=== PATIENT | male | born 1980 | race Two or more races ===

== ENCOUNTER 2018-11-17 22:07 | Emergency (ER) | payer OTHER ==
[~2018-11-17] VITALS: Ht 167.6 cm; Wt 65.8 kg
[2018-11-17 22:10] VITALS: BP 134/88
--- NOTE | 2018-11-17 22:15 | Emergency Room Report ---
History of Present Illness General Chief Complaint: Chest Pain Source: Patient Present Illness HPI Is a 38-year-old male with a history of alcohol abuse. He said he drinks every day. He presents with chief complaint of body pain. Pain is in his head, his chest, and his stomach. His been ongoing for 7 years. No nausea no vomiting but no fever chills. Pain is diffuse in nature. Denies any withdrawal symptom. Denies any diarrhea. Nothing made it better. Nothing made it worse. Allergies: Coded Allergies: No Known Allergies (Unverified , 11/17/18) Patient History Past Medical History: see triage record, old chart reviewed Past Surgical History: none Pertinent Family History: none Social History: Reports: alcohol use Immunizations: other Reviewed Nursing Documentation: PMH: Agreed; PSxH: Agreed Review of Systems Eye: Denies: eye pain, blurred vision ENT: Denies: ear pain, nose congestion, throat swelling Respiratory: Denies: cough, shortness of breath Cardiovascular: Reports: chest pain; Denies: palpitations Gastrointestinal: Reports: abdominal pain; Denies: diarrhea, nausea, vomiting Musculoskeletal: Denies: back pain, joint pain Skin: Denies: rash Neurological: Reports: headache; Denies: numbness Endocrine: Denies: increased thirst, increased urine Hematologic/Lymphatic: Denies: easy bruising All Other Systems: negative except mentioned in HPI Physical Exam Vital Signs Date Time Temp Pulse Resp B/P (MAP) Pulse Ox O2 Delivery O2 Flow Rate FiO2 11/17/18 22:09 98.2 18 134/88 97 Room Air vitals normal Sp02 EP Interpretation: reviewed, normal General Appearance: well appearing, no apparent distress, alert Head: normocephalic, atraumatic Eyes: bilateral eye PERRL, bilateral eye EOMI ENT: hearing grossly normal, normal pharynx Neck: full range of motion, supple, no meningismus Respiratory: chest non-tender, lungs clear, normal breath sounds Cardiovascular #1: regular rate, rhythm, no murmur Gastrointestinal: normal bowel sounds, non tender, no mass, no organomegaly, no bruit, non-distended Musculoskeletal: back normal, gait/station normal, normal range of motion Psychiatric: mood/affect normal Skin: warm/dry Medical Decision Making Diagnostic Impression: Primary Impression: Alcohol intoxication Qualified Codes: F10.920 - Alcohol use, unspecified with intoxication, uncomplicated Additional Impressions: Chronic pain Qualified Codes: G89.4 - Chronic pain syndrome Alcoholic hepatitis Qualified Codes: K70.10 - Alcoholic hepatitis without ascites ER Course Patient with alcohol intoxication and chronic pain. No evidence of any bleeding or acute disease. He is not suicidal homicidal. I will let him sleep here until is more clinically sober. We'll discharge home in the morning. Last Vital Signs Date Time Temp Pulse Resp B/P (MAP) Pulse Ox O2 Delivery O2 Flow Rate FiO2 11/17/18 22:09 98.2 18 134/88 97 Room Air Status: improved Disposition: HOME, SELF-CARE Condition: Stable Additional Instructions: Abstain from alcohol. Follow-up with rehabilitation within a week. Return if worse. Pavel Kevin MD Nov 17, 2018 22:15
[2018-11-17 22:37] LABS: HEMATOCRIT 37.9 % (42.0-52.0); HEMOGLOBIN 12.8 G/DL (14.2-18.0); MEAN CORPUSCULAR VOLUME 96 FL (80-99); PLATELET COUNT 97 K/UL (150-450); RED BLOOD COUNT 3.95 M/UL (4.70-6.10); RED CELL DISTRIBUTION WIDTH 14.9 % (11.6-14.8)
[2018-11-17 22:42] LABS: ANION GAP 10 mmol/L (5-15); BLOOD UREA NITROGEN 9 mg/dL (7-18); CALCIUM 8.2 MG/DL (8.5-10.1); CARBON DIOXIDE 26 MMOL/L (21-32); CHLORIDE 106 MMOL/L (98-107); CREATININE 0.7 MG/DL (0.55-1.30); POTASSIUM 3.6 MMOL/L (3.5-5.1); SODIUM 142 MMOL/L (136-145)
[2018-11-17 22:49] LABS: ALANINE AMINOTRANSFERASE 170 U/L (12-78); ALBUMIN 3.4 G/DL (3.4-5.0); ALBUMIN/GLOBULIN RATIO 0.8 (1.0-2.7); ALKALINE PHOSPHATASE 82 U/L (46-116); ASPARTATE AMINO TRANSFERASE 230 U/L (15-37); BILIRUBIN,TOTAL 0.5 MG/DL (0.2-1.0)
[2018-11-18 04:30] VITALS: BP 130/84
[2018-11-18 06:20] VITALS: BP 127/81
== END 2018-11-18 06:20 | disposition home or self-care (01) ==
LOC: EDBD 22:07 → EMR 23:46
DX: F10.129 Alcohol abuse with intoxication, unspecified (principal); G89.4 Chronic pain syndrome; K70.10 Alcoholic hepatitis without ascites; R07.9 Chest pain, unspecified; R10.9 Unspecified abdominal pain; R51 Headache
CPT/HCPCS: 36415; 80053; 80329; 85007; 85025; 96360; 99284